=== PATIENT | female | born 1955 | race American Indian/Alaskan Native ===

== ENCOUNTER 2017-03-31 18:00 | Emergency (ER) | payer OTHER ==
[2017-03-31 19:54] VITALS: BP 117/82; PULSE 77; RESP 18; TEMP 99.1; O2SAT 100
--- NOTE | 2017-03-31 21:24 | C.PDOC ---
History Of Present Illness 62 year old female presents to the ER with a complaint of cough, subjective fever, and body aches. Denies sick contact, recent travel, nausea, or vomiting, Time Seen by Provider: 03/31/17 19:56 Chief Complaint (Nursing): Flu-like Symptoms History Per: Patient History/Exam Limitations: no limitations Current Symptoms Are (Timing): Still Present Location Of Pain: Diffuse Myalgias Sick Contacts (Context): None Associated Symptoms: Fever (Subjective), Cough, Myalgias. denies: Nausea, Vomiting Ear Symptoms: Bilateral: None Recent travel outside of the [place]: No Past Medical History Reviewed: Historical Data, Nursing Documentation, Vital Signs Vital Signs: Last Vital Signs Temp 99.1 F 03/31/17 19:50 Pulse 77 03/31/17 19:50 Resp 18 03/31/17 19:50 BP 117/82 03/31/17 19:50 Pulse Ox 100 03/31/17 21:25 - Medical History PMH: HTN Surgical History: Tonsillectomy Family History: States: Unknown Family Hx - Social History Hx Alcohol Use: No Hx Substance Use: No - Immunization History Hx Tetanus Toxoid Vaccination: No Hx Influenza Vaccination: No Hx Pneumococcal Vaccination: No Review Of Systems Constitutional: Positive for: Fever (Subjective) ENT: Negative for: Throat Pain Respiratory: Positive for: Cough Gastrointestinal: Negative for: Nausea, Vomiting Musculoskeletal: Positive for: Other (Body aches) Physical Exam - Physical Exam Appears: Non-toxic, No Acute Distress Skin: Normal Color, Warm, Dry Head: Atraumatic, Normacephalic Eye(s): bilateral: Normal Inspection Ear(s): Bilateral: Normal Nose: Normal Oral Mucosa: Moist Throat: Normal, No Erythema, No Exudate Neck: Normal, Supple Chest: Symmetrical, No Tenderness Cardiovascular: Rhythm Regular Respiratory: Normal Breath Sounds, No Rales, No Rhonchi, No Wheezing Gastrointestinal/Abdominal: Soft, No Tenderness Neurological/Psych: Oriented x3, Normal Speech ED Course And Treatment O2 Sat by Pulse Oximetry: 100 (Room air) Pulse Ox Interpretation: Normal - Radiology CXR: Interpreted by Me, Viewed By Me CXR Interpretation: Yes: Other (Haziness to perihilar area) Progress Note: CXR ordered, results showed haziness to the perihilar area. Will start on zithromax and discharge home with instructions to follow up with PMD or return if symptoms worsen. Disposition - Disposition Referrals: Mag Woodard [Primary Care Provider] - Disposition: HOME/ ROUTINE Disposition Time: 21:18 Condition: STABLE Additional Instructions: Follow up with PMD within 1-2 days. Return to ED if feels worse. Prescriptions: Brompheniramine/Pseudoephed/Dm [Bromfed Dm Cough 118 ml] 10 ml PO Q4 #300 ml Fluticasone Propionate [Flonase] 1 spr NS BID #1 spr Azithromycin [Zithromax] 250 mg PO DAILY #4 tab Instructions: Acute Bronchitis (ED) Forms: Emissary (Libyan) - Clinical Impression Clinical Impression: Bronchitis - PA / ACTIVE DIRECTORY ADMINISTRATOR / Resident Statement MD/DO has reviewed & agrees with the documentation as recorded. - Scribe Statement The provider has reviewed the documentation as recorded by the Scribe Jose Mandujano All medical record entries made by the Scribe were at my direction and personally dictated by me. I have reviewed the chart and agree that the record accurately reflects my personal performance of the history, physical exam, medical decision making, and the department course for this patient. I have also personally directed, reviewed, and agree with the discharge instructions and disposition.
--- NOTE | 2017-04-01 08:51 | RAD ---
HISTORY: cough/fever COMPARISON: No prior. TECHNIQUE: Chest PA and lateral FINDINGS: LUNGS: Mild bibasilar atelectasis left greater than right. Developing lower lobe infiltrates could be excluded followup radiographs. . PLEURA: No significant pleural effusion identified. No pneumothorax apparent. CARDIOVASCULAR: Normal. OSSEOUS STRUCTURES: Minor multilevel degenerative spondylosis of the thoracic spine. . VISUALIZED UPPER ABDOMEN: Normal. OTHER FINDINGS: None. IMPRESSION: Minor bibasilar atelectasis left greater than right. Developing lower lobe infiltrates could be excluded with followup radiographs.
== END 2017-03-31 21:33 | disposition home or self-care (01) ==
LOC: C.ER 18:00 → SUPCPDRO 18:00 → C.ER 21:33
DX: J40 Bronchitis, not specified as acute or chronic (principal)

== ENCOUNTER 2018-03-25 20:12 | Emergency (ER) | payer OTHER ==
[2018-03-25 20:33] VITALS: BP 119/79; PULSE 71; TEMP 98.4; O2SAT 98
--- NOTE | 2018-03-25 20:44 | C.PDOC ---
History Of Present Illness 63 y/o female with PMHx of HTN presents complaining of left hand (3rd and 5th digits) and left knee pain since this morning s/p mechanical fall. Patient states she was running to catch her train when she tripped and fell, landing on her left knee and hand. Denies any head strike or LOC. States she got up immediately and was ambulatory. Patient denies blood thinner use. Also denies any weakness, numbness, paresthesias, open wounds, headache, dizziness, vision changes, abdominal pain, back pain, neck pain, or any other associated symptoms. Time Seen by Provider: 03/25/18 20:30 Chief Complaint (Nursing): Upper Extremity Problem/Injury History Per: Patient History/Exam Limitations: no limitations Onset/Duration Of Symptoms: Hrs Current Symptoms Are (Timing): Still Present Past Medical History Reviewed: Historical Data, Nursing Documentation, Vital Signs Vital Signs: Last Vital Signs Temp 98.4 F 03/25/18 20:28 Pulse 71 03/25/18 20:28 Resp 16 03/25/18 20:28 BP 119/79 03/25/18 20:28 Pulse Ox 98 03/25/18 20:28 - Medical History PMH: HTN Surgical History: Tonsillectomy Family History: States: Unknown Family Hx - Social History Hx Alcohol Use: No Hx Substance Use: No - Immunization History Hx Tetanus Toxoid Vaccination: No Hx Influenza Vaccination: No Hx Pneumococcal Vaccination: No Review Of Systems Except As Marked, All Systems Reviewed And Found Negative. Constitutional: Negative for: Fever, Weakness Eyes: Negative for: Vision Change Cardiovascular: Negative for: Chest Pain, Palpitations, Light Headedness Respiratory: Negative for: Cough, Shortness of Breath Gastrointestinal: Negative for: Nausea, Vomiting, Abdominal Pain Musculoskeletal: Positive for: Hand Pain (left 3rd and 5th digit pain), Leg Pain (left knee). Negative for: Neck Pain Skin: Negative for: Lesions (or open wounds), Bruising Neurological: Negative for: Weakness, Numbness, Incoordination, Confusion, Seizures, Headache, Dizziness Physical Exam - Physical Exam Appears: Well, Non-toxic, No Acute Distress Skin: Warm, Dry Head: Atraumatic, Normacephalic Eye(s): bilateral: Normal Inspection, PERRL, EOMI Nose: Normal Oral Mucosa: Moist Neck: Normal ROM, No Decreased ROM, No Midline Cervical Tenderness, No Paracervical Tenderness, No Step Off Deformity, Supple Chest: Symmetrical Cardiovascular: Rhythm Regular Respiratory: Normal Breath Sounds, No Accessory Muscle Use, Other (No respiratory distress) Gastrointestinal/Abdominal: Soft, No Tenderness Back: Normal Inspection, No Vertebral Tenderness, No Decreased ROM, No Paraspinal Tenderness Extremity: Tenderness (to left hand 3rd digit at the PIP joint, and over the 5th digit MCP joint; (+) Anterior lateral left knee tenderness), Capillary Refill (< 2 sec), No Deformity, Swelling (to left hand 3rd digit at the PIP joint, with no ecchymosis or skin changes to the upper or lower extremities), Other (Decreased ROM secondary to pain, Neurologically intact) Pulses: Left Radial: Normal, Right Radial: Normal, Left Dorsalis Pedis: Normal, Right Dorsalis Pedis: Normal Neurological/Psych: Oriented x3, Normal Speech, Normal Motor, Normal Sensation Gait: Steady ED Course And Treatment O2 Sat by Pulse Oximetry: 98 (RA) Pulse Ox Interpretation: Normal Medical Decision Making Medical Decision Making: Impression: Hand pain, Knee pain, s/p fall Plan: - Left hand x-ray - Left knee x-ray - 650 mg PO Tylenol X-rays preliminary read as negative. Patient remains AAOx3, resting comfortably, and ambulatory in the ED with steady gait. Will discharge patient home. Patient placed in finger splint by me. Neurovascular exam remains unchanged after splint. Advised to follow up with orthopedist for further evaluation, referral provided. Diagnostic testing results and plan of care discussed with patient. Strict instructions given regarding importance of followup, and signs/symptoms to return to ER including numbness, paresthesias, worsening pain, difficulty walking, or any other new/worsening symptoms. Pt verbalized understanding of discussion. Patient is A&Ox3, ambulating with steady gait, with vital signs stable for discharge. Disposition - Disposition Referrals: [facility] [Outside] Ramon Law MD [Staff Provider] - Disposition: HOME/ ROUTINE Disposition Time: 21:30 Condition: GOOD Additional Instructions: Tylenol as needed for pain Followup with hand doctor within 2 days Followup with orthopedic doctor within 2 days Return to ER with any new/worsening symptoms Instructions: Finger Sprain (DC) Forms: General Discharge Instructions, [employer] ([place]), Work Excuse - Clinical Impression Clinical Impression: Finger sprain, Fall, Knee contusion - PA / ACQUISITION ADVISOR / Resident Statement MD/DO has reviewed & agrees with the documentation as recorded. - Scribe Statement The provider has reviewed the documentation as recorded by the Scribe Marybel Harris All medical record entries made by the Eusebioibe were at my direction and personally dictated by me. I have reviewed the chart and agree that the record accurately reflects my personal performance of the history, physical exam, medical decision making, and the department course for this patient. I have also personally directed, reviewed, and agree with the discharge instructions and disposition.
[2018-03-25 21:49] VITALS: RESP 20
--- NOTE | 2018-03-26 10:03 | RAD ---
PROCEDURE: Left Hand Radiographs. HISTORY: fall, 3rd and 5th digit pain COMPARISON: None. FINDINGS: BONES: No fracture or erosion seen. JOINTS: Minimal diffuse joint space proximal distal joints digits compatible with degenerative joint disease SOFT TISSUES: Normal. OTHER FINDINGS: None. IMPRESSION: No fracture or erosion seen. Other findings as above. No preliminary written ER impression is available at this time.
--- NOTE | 2018-03-26 11:09 | RAD ---
Date of service: 03/25/2018 PROCEDURE: Left Knee Radiographs. HISTORY: Pain. COMPARISON: None. FINDINGS: BONES: No fracture seen. No lytic lesion. JOINTS: Osteoarthrosis suggested-medial and lateral tibial spine spurring. Along each femoral condylar is intercondylar fossa border some spurring is noted this is more pronounced along the medial femoral condyle some fractional affects on the cruciate ligaments are a possible consideration. A pedunculated osteophyte is apparent or suspect along the inner aspect of the medial femoral condyle. JOINT EFFUSION: None. OTHER FINDINGS: Tiny Quadriceps insertional enthesophyte IMPRESSION: Osteoarthrosis-as detailed above all compartments affected. No preliminary written ER impression is available at this time.
== END 2018-03-25 21:48 | disposition home or self-care (01) ==
LOC: C.ER 20:12
DX: S80.02XA Contusion of left knee, initial encounter (principal); S63.613A Unspecified sprain of left middle finger, initial encounter; S63.617A Unspecified sprain of left little finger, initial encounter; W01.0XXA Fall on same level from slipping, tripping and stumbling without subsequent striking against object, initial encounter; Y93.02 Activity, running; I10 Essential (primary) hypertension